=== PATIENT | male | born 1940 | race Hispanic/Latino ===

== ENCOUNTER 2018-07-11 12:10 | Inpatient (IN) | payer MEDICARE ==
[2018-07-11 12:17] VITALS: BMI 22.6
--- NOTE | 2018-07-11 12:32 | ED PDOC ---
Arrival/HPI - General Chief Complaint: Weakness/Neurological Deficit Time Seen by Provider: 07/11/18 12:11 Historian: Patient, Spouse () - History of Present Illness Narrative History of Present Illness (Text): 77 M with pmh of liver cirrhosis w/ TIPS procedure, dementia, diabetes, HTN, CAD w/ stent x2, Liver CA, presents with chief complaint of bodily tremors for several days. Per patient's , the patient last episode of tremors was this morning where it occurred for about 30 minutes. He remained conscious during these tremors. Patient's also mentioned that the patient has also complained of generalized weakness and worsening mentation for a couple days. Patient 's endorses patient has been complaint with lactulose medication. Patient otherwise denies fevers, chills, headache, dizziness, shortness of b reath, dyspnea on exertion, cough, chest pain, abdominal pain, nausea, vomiting, diarrhea, back pain, neck pain, or any other complaint. Time/Duration: < week Symptom Onset: Gradual Symptom Course: Worsening Activities at Onset: Light Context: Home Past Medical History - Provider Review Nursing Documentation Reviewed: Yes - Infectious Disease Hx of Infectious Diseases: None - Tetanus Immunization Tetanus Immunization: Unknown - Cardiac Hx Cardiac Disorders: Yes Hx Hypertension: Yes - Pulmonary Hx Respiratory Disorders: No - Neurological Hx Neurological Disorder: Yes Hx Dementia: Yes - HEENT Hx HEENT Disorder: No - Renal Hx Renal Disorder: No - Endocrine/Metabolic Hx Endocrine Disorders: Yes Hx Diabetes Mellitus Type 2: Yes - Hematological/Oncological Hx Blood Disorders: Yes Hx Cirrhosis: Yes - Integumentary Hx Dermatological Disorder: No - Musculoskeletal/Rheumatological Hx Musculoskeletal Disorders: Yes Hx Unsteady Gait: Yes - Gastrointestinal Hx Gastrointestinal Disorders: Yes (Liver tumor) - Genitourinary/Gynecological Hx Genitourinary Disorders: No - Psychiatric Hx Psychophysiologic Disorder: No Hx Substance Use: No - Past Surgical History Past Surgical History: No Previous - Surgical History Hx Coronary Stent: Yes Other/Comment: TIPPS - Suicidal Assessment Feels Threatened In Home Enviroment: No Family/Social History - Physician Review Nursing Documentation Reviewed: Yes Family/Social History: Unknown Family HX Smoking Status: Never Smoked Hx Alcohol Use: No Hx Substance Use: No Hx Substance Use Treatment: No Allergies/Home Meds Allergies/Adverse Reactions: Allergies penicillamine Allergy (Verified 12/16/17 15:51) RASH Home Medications: Home Meds Medication Instructions Recorded Confirmed Liraglutide [Victoza] 1.8 mg SC DAILY 10/08/14 07/11/18 Losartan [Cozaar] 50 mg PO DAILY 10/08/14 07/11/18 Brimonidine Tartrate/Timolol 5 ml OP BID 07/11/18 07/11/18 [Combigan 0.2%-0.5% Eye Drops] Carvedilol [Coreg] 12.5 mg PO DAILY 07/11/18 07/11/18 Donepezil [Aricept] 5 mg PO DAILY 07/11/18 07/11/18 Furosemide [Lasix] 40 mg PO BID 07/11/18 07/11/18 Gabapentin [Neurontin] 300 mg PO DAILY 07/11/18 07/11/18 Insulin Detemir [Levemir] 18 unit SC BID 07/11/18 07/11/18 Lactulose [Generlac] 10 gm PO HS 07/11/18 07/11/18 amLODIPine [Norvasc] 5 mg PO DAILY 07/11/18 07/11/18 Review of Systems - Physician Review All systems were reviewed & negative as marked: Yes - Review of Systems Constitutional: Fevers, Other (generalized weakness) Eyes: absent: Vision Changes, Photophobia, Eye Pain ENT: absent: Hearing Changes Respiratory: absent: SOB, Cough Cardiovascular: absent: Chest Pain, Palpitations Gastrointestinal: absent: Abdominal Pain, Stool Changes Genitourinary Male: absent: Dysuria Musculoskeletal: absent: Arthralgias Skin: absent: Rash, Pruritis Neurological: absent: Headache, Dizziness Endocrine: absent: Diaphoresis, Polyuria Physical Exam Vital Signs Reviewed: Yes Vital Signs Temp Pulse Resp BP Pulse Ox 07/11/18 12:10 97.6 F 71 18 163/77 H 100 Temperature: Afebrile Blood Pressure: Hypertensive Pulse: Regular Respiratory Rate: Normal Appearance: Positive for: Well-Appearing, Non-Toxic, Comfortable Pain Distress: None Mental Status: No: Alert and Oriented X 3 (A & 0x1) Finger Stick Blood Glucose: 203 - Systems Exam Head: Present: Atraumatic, Normocephalic Pupils: Present: PERRL Extroacular Muscles: Present: EOMI Conjunctiva: Present: Normal Ears: Present: Normal, NORMAL TM Mouth: Present: Moist Mucous Membranes Pharnyx: Present: Normal. No: ERYTHEMA, EXUDATE, TONSILS ENLARGED, Peritonsilar Swelling, Uvular Deviation Neck: Present: Normal Range of Motion. No: Meningeal Signs, MIDLINE TENDERNESS Respiratory/Chest: Present: Clear to Auscultation, Good Air Exchange. No: Respiratory Distress, Accessory Muscle Use Cardiovascular: Present: Regular Rate and Rhythm, Normal S1, S2. No: Murmurs Abdomen: No: Tenderness, Distention, Peritoneal Signs Back: Present: Normal Inspection. No: CVA Tenderness, Midline Tenderness Upper Extremity: Present: Normal Inspection, Normal ROM, NORMAL PULSES. No: Cyanosis, Edema Lower Extremity: Present: Edema (B/l, 2+), NORMAL PULSES, Neurovascularly Intact Neurological: Present: GCS=15, CN II-XII Intact, Speech Normal Skin: Present: Warm, Dry, Normal Color. No: Rashes Psychiatric: Present: Alert, Normal Insight, Normal Concentration. No: Oriented x 3 (0x1) Medical Decision Making ED Course and Treatment: 77 yr old male w/ hx of Liver cirrhosis, TIPS procedure, Liver CA, Dementia, CAD w/ stents p/w tremors. bedside notes tremors w/ pt fully conscious. Pt has recollection of tremors and denies any tongue biting or enuresis during these episodes. On exam pt is AOx1, per pt notes that pt is usually AOx3. She notes these changes have been progressive over the past days and not within the past 24 hours. No fall or trauma. B/L LE swelling. No unilateral weakness or slurred speech. Pending imaging and labs. 07/11/18 13:47 Mild MAGED on labs, BNP unremarkable fluid ordered CT Head and CXR unremarkable Given MAGED and tremors, AMS change from baseline will likely place in obs pending UA and Ammonia. No asterixis at this time. 07/11/18 14:00 Appreciate consult w/ Dr. Platt: to obs to his service Pt in [facility], agreeable to plan 07/11/18 14:07 ammonia 159 lactulose ordered pt in [facility] appreciate reconsult w/ Dr. Platt: to admit to his service, we are to place consult order to Dr. Analia Tavarez (GI) - RAD Interpretation Radiology Orders: 07/11/18 12:26 HEAD W/O CONTRAST [CT] Stat CHEST TWO VIEWS (PA/LAT) [RAD] Stat - EKG Interpretation EKG Interpretation (Text): 07/11/18 12:30 EKG: Ordered, reviewed, and independently interpreted the EKG. Rate : 73 BPM Rhythm : NSR Interpretation : Right Bundle Branch Block. No STEMI Interpreted by ED Physician: Yes Type: 12 lead EKG - Scribe Statement The provider has reviewed the documentation as recorded by the Alexandre Dumont Provider Scribe Attestation: All medical record entries made by the Catrachitoibnya were at my direction and personally dictated by me. I have reviewed the chart and agree that the record accurately reflects my personal performance of the history, physical exam, medical decision making, and the department course for this patient. I have also personally directed, reviewed, and agree with the discharge instructions and disposition. Disposition/Present on Arrival - Present on Arrival Any Indicators Present on Arrival: No History of DVT/PE: No History of Uncontrolled Diabetes: No Urinary Catheter: No History of Decub. Ulcer: No History Surgical Site Infection Following: None - Disposition Have Diagnosis and Disposition been Completed?: Yes Diagnosis: MAGED (acute kidney injury), Altered mental status, Hyperammonemia Disposition: HOSPITALIZED Disposition Time: 13:52 Patient Problems: Current Active Problems Problem Status Onset MAGED (acute kidney injury) Acute Altered mental status Acute Condition: STABLE Forms: [employer] (Maltese)
[2018-07-11 13:02] LABS: VENOUS BLOOD GAS BASE EXCESS 1.7 mmol/L (0.0-2.0); VENOUS BLOOD GAS PO2 29 mm/Hg (30-55); VENOUS BLOOD PH 7.41 (7.32-7.43)
[2018-07-11 13:06] LABS: BASO # 0.03 K/mm3 (0.0-2.0); BASO % 0.5 % (0.0-3.0); EOS # 0.2 (0.0-0.7); EOS % 2.8 % (1.5-5.0); HEMOGLOBIN 14.4 g/dL (14.0-18.0); LYMPH # 0.8 (1.2-3.4); LYMPH % 13.9 % (22.0-35.0); MEAN CELL VOLUME 92.8 fl (80.0-105.0); MEAN CORPUSCULAR HEMOGLOBIN 32.6 pg (25.0-35.0); MEAN CORPUSCULAR HGB CONC 35.1 g/dl (31.0-37.0); MEAN PLATELET VOLUME 10.5 fl (7.0-11.0); MONO # 0.4 (0.1-0.6); MONO % 7.3 % (1.0-6.0); RBC 4.42 10^6/uL (3.5-6.1); RED CELL DISTRIBUTION WIDTH 13.1 % (11.5-14.5); WHITE BLOOD COUNT 5.6 10^3/uL (4.5-11.0)
--- NOTE | 2018-07-11 13:21 | CT ---
Date of service: 07/11/2018 PROCEDURE: CT HEAD WITHOUT CONTRAST. HISTORY: weak / ams from baseline / tremor COMPARISON: Noncontrast head CT performed 09/13/14 TECHNIQUE: Axial computed tomography images were obtained through the head/brain without intravenous contrast. Radiation dose: Total exam DLP = 778.19 mGy-cm. This CT exam was performed using one or more of the following dose reduction techniques: Automated exposure control, adjustment of the mA and/or kV according to patient size, and/or use of iterative reconstruction technique. FINDINGS: HEMORRHAGE: No intracranial hemorrhage. BRAIN: Diffuse atrophy with prominence of the ventricles and sulci noted. No mass effect or edema. Intracranial atherosclerosis. Scattered periventricular and subcortical white matter hypodensities, which are nonspecific, but often seen with chronic microvascular ischemic disease. Please note that MRI with diffusion imaging is more sensitive in the detection of acute ischemic event. VENTRICLES: No hydrocephalus. CALVARIUM: Unremarkable. PARANASAL SINUSES: 9 mm left frontal osteoma. Remainder the visualized paranasal sinuses appear grossly clear. MASTOID AIR CELLS: Unremarkable as visualized. No inflammatory changes. OTHER FINDINGS: None. IMPRESSION: Generalized atrophy. Nonspecific white matter changes identified.
[2018-07-11 13:24] LABS: ALBUMIN 3.6 g/dL (3.0-4.8); ALT/SGPT 27 U/L (7-56); AST/SGOT 38 U/L (17-59); BLOOD UREA NITROGEN 28 mg/dL (7-21); CALCIUM 9.1 mg/dL (8.4-10.5); GFR NON-AFRICAN AMERICAN 39
--- NOTE | 2018-07-11 13:31 | RAD ---
HISTORY: weak / ams COMPARISON: None available. TECHNIQUE: Chest PA and lateral, 2 views FINDINGS: LUNGS: No focal consolidation. Please note that chest x-ray has limited sensitivity for the detection of pulmonary masses. PLEURA: No significant pleural effusion identified. No definite pneumothorax . CARDIOVASCULAR: Heart size appears within normal limits. Atherosclerotic calcifications of the aorta. OSSEOUS STRUCTURES: Degenerative changes. VISUALIZED UPPER ABDOMEN: Unremarkable. OTHER FINDINGS: None. IMPRESSION: No focal consolidation identified.
[2018-07-11 13:35] LABS: B-TYPE NATRIURETIC PEPTIDE 192 pg/mL (0-450); TROPONIN I < 0.01 ng/mL
[2018-07-11] MEDS: Sodium Chloride 0.9% 1,000 ML IV SCH (14:02)
[2018-07-11 14:22] LABS: PH,URINE 7.5 (4.7-8.0); URINE APPEARANCE CLEAR (CLEAR); URINE BILIRUBIN NEGATIVE (NEGATIVE); URINE BLOOD NEGATIVE (NEGATIVE); URINE COLOR YELLOW (YELLOW); URINE GLUCOSE (UA) >=1000 mg/dL (NEGATIVE); URINE LEUKOCYTE ESTERASE NEGATIVE Leu/uL (NEGATIVE); URINE PROTEIN 100 mg/dL (<30 mg/dL)
[2018-07-11 14:54] LABS: INR 1.19; PROTHROMBIN TIME 13.2 SECONDS (9.4-12.5)
[2018-07-11 15:07] LABS: URINE BACTERIA FEW /hpf; URINE EPITHELIAL CELLS 0 - 2 /hpf (0-5); URINE RBC 0 - 2 /hpf (0-2); URINE WBC 0 - 2 /hpf (0-6)
[2018-07-11] MEDS: BRIMONIDINE TARTRATE OP SCH (17:35)
[2018-07-11] MEDS: TIMOLOL OP SCH (17:35)
[2018-07-11] MEDS: Insulin Detemir 100 units/ml Vial (Levemir) SC SCH (17:38)
[2018-07-11] MEDS: Insulin Reg-LOW-Coverage SC SCH ×2 (17:39→21:31)
--- NOTE | 2018-07-11 20:30 | CARD ---
APPROVED REPORT Date of service: 07/11/2018 EKG Measurement Heart [id number] <Conclusion> Poor data quality, interpretation may be adversely affected Normal sinus rhythm Left axis deviation Right bundle branch block Minimal voltage criteria for LVH, may be normal variant Abnormal ECG
[2018-07-12] MEDS: Sodium Chloride 0.9% 1,000 ML IV SCH (01:00)
--- NOTE | 2018-07-12 02:24 | HP ---
DATE OF EXAM: 07/11/2018 HISTORY OF PRESENT ILLNESS: Patient is seen in the emergency room at [facility] which is [facility] in [place]. A 77-year-old male. He presented to the emergency room with confusion, tremors, ataxia, and gait abnormality. Patient woke up this morning according to his and he was in a tremulous state and somewhat confused. Patient was brought to emergency room for evaluation. Patient had no fall or injury. Patient has no history of fever. Patient had no history of headache. Patient has past history of liver disease. Patient has cirrhosis of liver. Patient has TIPS procedure performed on him several years ago. Patient has treatment for malignant hepatomas in the liver, multiple hepatomas treated at the [facility]. Patient also history of coronary artery disease and diabetes mellitus. Patient also has history of chronic foot infection. The patient is on insulin for diabetes. In addition, patient gets Victoza which is antidiabetic medication. PHYSICAL EXAMINATION GENERAL: Patient is seen lying down in the bed. He seems to be awake, and oriented to place, time, and person. VITAL SIGNS: Pulse is 78, blood pressure 167/79, respirations 18, and O2 sat is 100% on room air. HEENT: Head is normocephalic. The eyes do not show any jaundice. NECK: JVP is flat. Carotid pulse are present. No lymphadenopathy. LUNGS: Trachea is central. Breath sounds vesicular. No adventitious sounds. HEART: Normal sinus rhythm. S1 and S2 present. No murmurs. ABDOMEN: Soft. Liver and spleen not palpable. DOT COMPLIANCE SPECIALIST: Patient is conscious, rational and oriented as mentioned. Patient has no cranial nerve palsy at this time. Cranial nerves II to XII are intact. Patient's gait, as mentioned earlier, has some instability. Patient has no flapping tremors noted on examination. LABORATORY DATA: Blood work was evaluated in the ER. Hemoglobin is 14.4. Patient's chemistries; the BUN is 28 and creatinine 1.7. Patient's ammonia level is 159 which is abnormal. Patient's TSH is 13.60, that is elevated also at this time. Patient's troponin level is within normal range. Patient's blood sugar is 212. MEDICATIONS: Patient is being placed on his medications which are Aricept 5 mg daily. Patient gets Combigan for glaucoma. Patient gets Coreg 12.5 mg b.i.d., losartan 50 mg daily, lactulose 10 g b.i.d. which will be increased may be 3-4 times a day. Patient will get insulin coverage, Lasix 40 mg twice a day IV. Patient will get Levemir insulin 18 units b.i.d. Patient gets gabapentin 300 mg daily and amlodipine 5 mg daily. Patient is on IV fluids for short term. He will be on diet that is specific for liver disease. The patient's consultation will be placed with Dr. Helms, he is a geoscience professor. Patient will be admitted to the medical floor and will be watched closely. In the meantime, patient had a CAT scan of the head done which did not reveal any pathology. Chest x-ray was clear. The EKG report is not read, but according to the physician, there are no acute findings. 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 Patient had diabetes, coronary artery disease, and malignant hepatoma. PLAN: We will follow up. Eb Carolina MD VICTORINA
[2018-07-12 06:39] LABS: BASO # 0.03 K/mm3 (0.0-2.0); BASO % 0.6 % (0.0-3.0); EOS # 0.2 (0.0-0.7); EOS % 3.6 % (1.5-5.0); HEMOGLOBIN 12.5 g/dL (14.0-18.0); LYMPH # 1.5 (1.2-3.4); LYMPH % 28.9 % (22.0-35.0); MEAN CORPUSCULAR HEMOGLOBIN 32.4 pg (25.0-35.0); MEAN CORPUSCULAR HGB CONC 34.8 g/dl (31.0-37.0); MEAN PLATELET VOLUME 10.5 fl (7.0-11.0); MONO # 0.5 (0.1-0.6); MONO % 8.6 % (1.0-6.0); RBC 3.86 10^6/uL (3.5-6.1); RED CELL DISTRIBUTION WIDTH 13.2 % (11.5-14.5); WHITE BLOOD COUNT 5.3 10^3/uL (4.5-11.0)
[2018-07-12 07:15] LABS: ALB/GLOB RATIO 0.8 (1.1-1.8); ALBUMIN 2.5 g/dL (3.0-4.8); CALCIUM 8.5 mg/dL (8.4-10.5)
[2018-07-12 07:48] VITALS: O2SAT 98
--- NOTE | 2018-07-12 08:37 | CON ---
DATE: 07/11/2018 REASON FOR CONSULTATION: Change of mental status, hepatic encephalopathy. 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 Patient did have microwave ablation therapy and TACE, transarterial chemoembolization initially in 2017. Patient was doing well. Patient subsequently was found to have another new lesion in segment 6 and 7. Initially lesion was in 6 and 5, at the S5 and the second one was in 6 and 7 and that was noticed for which the patient had evaluation at the [facility]. He was seen by Dr. Barahona and he was recommended again to repeat microwave ablation therapy. Patient is due to have a followup to remove the remainder of the lesion. Patient is due to follow up for this at the [facility]. Patient also had history of ascites, and patient had GI bleeding, with gastric varices, esophageal varices. He had a TIPS procedure done. The last MRI done at the [facility], the TIPS was found to be patent. Patient was noticed to have change of mental status by his and he was brought to the hospital. Patient's ammonia level was found to be high. It was 159. Patient was given lactulose. Patient was evaluated in the ER, appeared comfortable. was at bedside. PAST MEDICAL HISTORY: Significant for coronary artery disease status post stent placement in the past, diabetes mellitus, hypertension, peripheral neuropathy, arthritis, and glaucoma. SOCIAL HISTORY: Positive for ex alcohol use. Denies smoking. REVIEW OF SYSTEMS: Positive as above. Other systems reviewed. No complaints of vomiting. No abdominal pain now. No melena or bleeding per rectum. ALLERGIES: PATIENT IS ALLERGIC TO PENICILLIN. PHYSICAL EXAMINATION GENERAL: Patient is lying on bed, not in acute distress. VITAL SIGNS: Temperature is 97.6, blood pressure 167/79, respirations 18, O2 saturation is 100%. HEENT: Atraumatic, anicteric. NECK: Supple. HEART: S1 and S2 heard. LUNGS: Bilateral air entry present. ABDOMEN: Soft. No tenderness. EXTREMITIES: No edema. No cyanosis. NEUROLOGIC: Patient is a little lethargic, has asterixis present. LABORATORY DATA: Hemoglobin 14.4, hematocrit 41, WBC 5.6, and platelets 165. Chemistry showed BUN 18 and creatinine 1.7. Ammonia level 159. TSH is elevated to 13.6. IMPRESSION: This 77-year-old patient with; 1. 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 Patient has been on oral lactulose. 2. Patient had a history of gastrointestinal bleeding in the past, has esophageal and gastric varices status post transjugular intrahepatic portosystemic shunt. Last MRI done at the [facility] the transjugular intrahepatic portosystemic shunt appeared patent. Would request an abdominal Doppler to further evaluate. 3. Patient has an elevated BUN and creatinine. Clinically, patient appears dry. His BUN baseline used to be 1.2, it is now 1.7. Would consider gentle hydration in this patient. 4. Elevated TSH. It is elevated to 13.6. We discussed with Dr. Carolina regarding the management. 5. His other comorbidities include coronary artery disease and diabetes mellitus. PLAN: I did discuss with the emergency room physician regarding the management of lactulose with a lactulose dose, and abdominal Doppler and ultrasound scan of the abdomen with Doppler to further evaluate and gentle hydration. We will continue to closely follow up with his care and suggest further recommendations based on the clinical course. Thank you very much for allowing us to participate in the care of the patient. Daysi Helms MD
[2018-07-12] MEDS: Insulin Reg-LOW-Coverage SC SCH ×3 (08:38→17:24)
--- NOTE | 2018-07-12 08:55 | US ---
PROCEDURE: Portal vein duplex ultrasound. CLINICAL HISTORY: Cirrhosis. Evaluate TIPS patency PHYSICIAN(S): Navarro Barton M.D. FINDINGS: The hepatic parenchyma is somewhat heterogeneous. No obvious mass is appreciated on these limited images. The TIPS shunt is patent. Velocities up to 226 cm/second are present in the mid stent. This may be related to an inappropriate Doppler angle. The right hepatic vein appears patent with mildly elevated velocities. The portal vein velocity is normal IMPRESSION: 1. Patent TIPS stent 2. No significant ascites. 3. Moderately elevated velocities in the mid stent. This may be related to an inappropriate Doppler angle.
--- NOTE | 2018-07-12 10:02 | PN ---
DATE: 07/12/2018 SUBJECTIVE: The patient is in [facility] in room 372, bed 2. The patient was admitted with liver disease, and encephalopathy. The patient is seen this morning, he is awake and alert. PHYSICAL EXAMINATION VITAL SIGNS: Pulse is 71, blood pressure 175/76, respirations are 20, his O2 sats 98% on room air and temperature is normal. HEENT: The patient's head is normocephalic. LUNGS: Clear. HEAT: Normal sinus rhythm. ABDOMEN: Soft. Liver and spleen not palpable. No tenderness. No masses clinically palpable. CENTRAL NERVOUS SYSTEM: The patient is conscious, seems to be mildly lethargic and weak. LABORATORY DATA: The patient's blood work this morning, his hemoglobin 12.5. His chemistry; sugar is 141, BUN is 25 and creatinine 1.4. The patient's total protein is 5.6 and albumin is 2.5, which is low. The patient had ultrasound of the abdomen. ASSESSMENT AND PLAN: The patient is supposed to be seen by Dr. Helms, the Head Soft Sugar Operator and we will followup. Eb Carolina MD [email or web address]
[2018-07-12] MEDS: Insulin Detemir 100 units/ml Vial (Levemir) SC SCH ×2 (11:06→17:23)
[2018-07-12] MEDS: TIMOLOL OP SCH (11:10)
[2018-07-12] MEDS: BRIMONIDINE TARTRATE OP SCH (11:10)
--- NOTE | 2018-07-12 11:42 | CP.PCM.PN ---
<Jacy Calzada - Last Filed: 07/12/18 11:37> Subjective - Date & Time of Evaluation Date of Evaluation: 07/12/18 Time of Evaluation: 11:37 - Subjective Subjective: Jacy Calzada, PGY-1, GI Progress Note for Dr. Helms Patient seen and evaluated at bedside. Patient had no acute overnight events. Patient is AAOx2 at bedside. He reports having 3 loose bowel movements that were dark brown over the past 24 hours. He denies nausea, vomiting, or abdominal pain. Objective - Vital Signs/Intake and Output Vital Signs (last 24 hours): Temp Pulse Resp BP Pulse Ox 97.3 F L 71 20 175/76 H 98 07/12/18 07:48 07/12/18 11:09 07/12/18 07:48 07/12/18 11:09 07/12/18 07:48 Intake and Output: 07/12/18 07/12/18 06:59 18:59 Intake Total 480 Output Total 550 Balance -70 - Medications Medications: Current Medications Amlodipine Besylate (Norvasc) 5 mg PO DAILY [facility] Last Admin: 07/12/18 11:09 Dose: 5 mg Carvedilol (Coreg) 12.5 mg PO DAILY [facility] Last Admin: 07/12/18 11:08 Dose: 12.5 mg Donepezil HCl (Aricept) 5 mg PO DAILY [facility] Last Admin: 07/12/18 11:05 Dose: 5 mg Furosemide (Lasix) 40 mg PO BID [facility] Last Admin: 07/12/18 11:08 Dose: 40 mg Gabapentin (Neurontin) 300 mg PO DAILY [facility]; Protocol Last Admin: 07/12/18 11:05 Dose: 300 mg Sodium Chloride (Sodium Chloride 0.9%) 1,000 mls @ 100 mls/hr IV .Q10H [facility] Last Admin: 07/12/18 01:00 Dose: 100 mls/hr Insulin Detemir (Levemir) 18 unit SC BID [facility] Last Admin: 07/12/18 11:06 Dose: 18 units Insulin Human Regular (Humulin R Low) 0 units SC ACHS [facility]; Protocol Last Admin: 07/12/18 08:38 Dose: Not Given Lactulose (Enulose) 30 gm PO TID [facility] Last Admin: 07/12/18 11:05 Dose: 30 gm Losartan Potassium (Cozaar) 50 mg PO DAILY [facility] Last Admin: 07/12/18 11:07 Dose: 50 mg Brimonidine Tartrate /Timolol [Combigan 0 .2%-0.5% Eye Drops] 5 Ml (Home Med) 5 ml OP BID [facility] Last Admin: 07/12/18 11:10 Dose: Not Given Rifaximin (Xifaxan) 550 mg PO BID [facility]; Protocol Last Admin: 07/12/18 11:06 Dose: 550 mg - Labs Labs: 07/12/18 06:10 07/12/18 06:10 PT 13.2 SECONDS (9.4-12.5) H 07/11/18 12:48 INR 1.19 07/11/18 12:48 - Constitutional Appears: Well, Non-toxic, No Acute Distress - Head Exam Head Exam: ATRAUMATIC, NORMAL INSPECTION, NORMOCEPHALIC - Eye Exam Eye Exam: EOMI, PERRL - ENT Exam ENT Exam: Mucous Membranes Moist - Respiratory Exam Respiratory Exam: Clear to Ausculation Bilateral, NORMAL BREATHING PATTERN - Cardiovascular Exam Cardiovascular Exam: REGULAR RHYTHM, RRR, +S1, +S2 - GI/Abdominal Exam GI & Abdominal Exam: Soft, Normal Bowel Sounds. absent: Tenderness - Extremities Exam Extremities Exam: Full ROM, Normal Inspection. absent: Pedal Edema - Neurological Exam Neurological Exam: Alert, Awake, CN II-XII Intact, Oriented x3 - Skin Skin Exam: Dry, Intact Assessment and Plan - Assessment and Plan (Free Text) Assessment: 77 year old male with past medical history of CAD status post stent placement, diabetes mellitus, hypertension, peripheral neuropathy, arthritis, glaucoma, al coholic cirrhosis, and history of hepatocellular carcinoma s/p microwave ablation and TACE in 2017 presents with altered mental status likely 2/2 to hepatic encephalopathy. #Hepatic encephalopathy #Alcoholic cirrhosis #Hepatocellular carcinoma #CAD #Diabetes Mellitus Plan: -Patient was found to have elevated ammonia of 159 on presentation -Patient is currently on oral lactulose and rifaximin likely resulting in the loose stools. -Continue lactulose and rifaximin and monitor mental status. 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 -As per abdominal ultrasound, TIPS is patent with no significant ascites -Patient's MAGED has resolved -Patient has elevated TSH. Follow up with primary regarding management. Patient plan discussed with Dr. Helms. <Daysi Helms V - Last Filed: 07/13/18 00:22> Objective - Vital Signs/Intake and Output Vital Signs (last 24 hours): Temp Pulse Resp BP Pulse Ox 96.6 F L 81 18 129/65 98 07/12/18 22:00 07/12/18 22:00 07/12/18 22:00 07/12/18 22:00 07/12/18 16:53 Intake and Output: 07/12/18 07/13/18 18:59 06:59 Intake Total 1000 720 Output Total 500 Balance 1000 220 - Medications Medications: Current Medications Amlodipine Besylate (Norvasc) 5 mg PO DAILY [facility] Last Admin: 07/12/18 11:09 Dose: 5 mg Carvedilol (Coreg) 12.5 mg PO DAILY [facility] Last Admin: 07/12/18 11:08 Dose: 12.5 mg Donepezil HCl (Aricept) 5 mg PO DAILY [facility] Last Admin: 07/12/18 11:05 Dose: 5 mg Furosemide (Lasix) 40 mg PO BID [facility] Last Admin: 07/12/18 17:24 Dose: 40 mg Gabapentin (Neurontin) 300 mg PO DAILY [facility]; Protocol Last Admin: 07/12/18 11:05 Dose: 300 mg Sodium Chloride (Sodium Chloride 0.9%) 1,000 mls @ 30 mls/hr IV .Q24H [facility] Last Admin: 07/12/18 22:23 Dose: 30 mls/hr Insulin Detemir (Levemir) 18 unit SC BID [facility] Last Admin: 07/12/18 17:23 Dose: 18 units Insulin Human Regular (Humulin R High) 0 units SC Q4H [facility]; Protocol Lactulose (Enulose) 30 gm PO TID [facility] Last Admin: 07/12/18 17:23 Dose: 30 gm Levothyroxine Sodium (Synthroid) 25 mcg PO 0600 [facility] Losartan Potassium (Cozaar) 50 mg PO DAILY [facility] Last Admin: 07/12/18 11:07 Dose: 50 mg Brimonidine Tartrate /Timolol [Combigan 0 .2%-0.5% Eye Drops] 5 Ml (Home Med) 0 ml OU BID [facility] Last Admin: 07/12/18 17:25 Dose: 1 ml Rifaximin (Xifaxan) 550 mg PO BID [facility]; Protocol Last Admin: 07/12/18 18:25 Dose: 550 mg - Labs Labs: 07/12/18 06:10 07/12/18 06:10 PT 13.2 SECONDS (9.4-12.5) H 07/11/18 12:48 INR 1.19 07/11/18 12:48 Attending/Attestation - Attestation I have personally seen and examined this patient.: Yes I have fully participated in the care of the patient.: Yes I have reviewed all pertinent clinical information, including history, physical exam and plan: Yes Notes (Text): This patient was seen and evaluated along with the resident area. This is an addendum to the GI progress report dictated by the resident patient is more alert. Tolerating diet plan for discharge patient need to be followed up at the [facility] for HCC management Patient was taking only 15 mL of lactulose advised the patient to take at least 30-60 mm titrate the dose to keep the bowel movements around [address] Saunders allowing us to participate in the care of the patient. We will continue to closely follow him follow-up with his care and suggest further management based on the clinical course 07/13/18 00:20
--- NOTE | 2018-07-12 15:25 | CP.PCM.APN ---
Subjective - Date & Time of Evaluation Date of Evaluation: 07/12/18 Time of Evaluation: 13:00 - Subjective Subjective: Pt. seen at bedside, after having lunch, denied abdominal pain, nausea, vomiting, having stools , awaits eval from Dr. Helms. Objective - Vital Signs/Intake and Output Vital Signs (last 24 hours): Temp Pulse Resp BP Pulse Ox 97.3 F L 71 20 175/76 H 98 07/12/18 07:48 07/12/18 11:09 07/12/18 07:48 07/12/18 11:09 07/12/18 07:48 Intake and Output: 07/12/18 07/12/18 06:59 18:59 Intake Total 480 Output Total 550 Balance -70 - Medications Medications: Current Medications Amlodipine Besylate (Norvasc) 5 mg PO DAILY [facility] Last Admin: 07/12/18 11:09 Dose: 5 mg Carvedilol (Coreg) 12.5 mg PO DAILY [facility] Last Admin: 07/12/18 11:08 Dose: 12.5 mg Donepezil HCl (Aricept) 5 mg PO DAILY [facility] Last Admin: 07/12/18 11:05 Dose: 5 mg Furosemide (Lasix) 40 mg PO BID [facility] Last Admin: 07/12/18 11:08 Dose: 40 mg Gabapentin (Neurontin) 300 mg PO DAILY [facility]; Protocol Last Admin: 07/12/18 11:05 Dose: 300 mg Sodium Chloride (Sodium Chloride 0.9%) 1,000 mls @ 100 mls/hr IV .Q10H [facility] Last Admin: 07/12/18 01:00 Dose: 100 mls/hr Insulin Detemir (Levemir) 18 unit SC BID [facility] Last Admin: 07/12/18 11:06 Dose: 18 units Insulin Human Regular (Humulin R Low) 0 units SC ACHS [facility]; Protocol Last Admin: 07/12/18 13:12 Dose: 4 units Lactulose (Enulose) 30 gm PO TID [facility] Last Admin: 07/12/18 13:09 Dose: 30 gm Losartan Potassium (Cozaar) 50 mg PO DAILY [facility] Last Admin: 07/12/18 11:07 Dose: 50 mg Brimonidine Tartrate /Timolol [Combigan 0 .2%-0.5% Eye Drops] 5 Ml (Home Med) 0 ml OU BID [facility] Rifaximin (Xifaxan) 550 mg PO BID [facility]; Protocol Last Admin: 07/12/18 11:06 Dose: 550 mg - Labs Labs: 07/12/18 06:10 07/12/18 06:10 PT 13.2 SECONDS (9.4-12.5) H 07/11/18 12:48 INR 1.19 07/11/18 12:48 - Constitutional Appears: Well, Non-toxic - Head Exam Head Exam: NORMOCEPHALIC - Eye Exam Eye Exam: absent: Conjunctival injection, EOMI, Normal appearance, Nystagmus, Periorbital swelling, Periorbital tenderness, PERRL, Scleral icterus - ENT Exam ENT Exam: absent: Mucous Membranes Dry, Mucous Membranes Moist, Normal Exam, Normal External Ear Exam, Normal Oropharynx, TM's Normal Bilaterally - Neck Exam Neck Exam: absent: Full ROM, Lymphadenopathy, Meningismus, Normal Inspection, Tenderness, Thyromegaly - Rectal Exam Rectal Exam: Deferred - Exam Exam: absent: Circumcision, NORMAL INSPECTION, Scrotal Swelling, Testicular Tenderness, Uretheral Discharge, Testicular Vertical Lie, Bladder Distension External exam: absent: Ecchymosis, Erythema, Lacerations, Lesions, NORMAL EXTERNAL EXAM, Swelling Speculum exam: absent: Cervical Discharge, Erythema, Foreign Body, Laceration, NORMAL SPECULUM EXAM, Tissue, Vaginal Bleeding, Vaginal Discharge Bimanual exam: absent: Adenexal Mass, Adnexal, Cervical Motion Tendernes, NORMAL BIMANUAL EXAM, Uterine Enlargement, Uterine Tenderness - Back Exam Back Exam: Full ROM - Neurological Exam Neurological Exam: Alert, Awake, Oriented x3 - Psychiatric Exam Psychiatric exam: Normal Affect, Normal Mood - Skin Skin Exam: Dry, Intact, Normal Color, Warm Assessment and Plan - Assessment and Plan (Free Text) Assessment: ITS Impressions Chest X-Ray 07/11/18 12:26 IMPRESSION: No focal consolidation identified. Head CT 07/11/18 12:26 IMPRESSION: Generalized atrophy. Nonspecific white matter changes identified. Abdomen Ultrasound 07/11/18 17:43 IMPRESSION: 1. Patent TIPS stent 2. No significant ascites. 3. Moderately elevated velocities in the mid stent. This may be related to an inappropriate Doppler angle. Assessment: 77 M with pmh of liver cirrhosis w/ TIPS procedure, dementia, diabetes, HTN, CAD w/ stent x2, Liver CA, presents with chief complaint of bodily tremors for several days. Plan: 1. AMS -likely secondary to elevated ammonia levels AMS, tremors improved. 2. Liver Cirrhosis Ammonia levels improved. awaiting GI input. Will continue to monitor clinical status and follow closely
[2018-07-12] MEDS: BRIMONIDINE TARTRATE OU SCH (17:25)
[2018-07-12] MEDS: TIMOLOL OU SCH (17:25)
[2018-07-12] MEDS ORDERED: Insulin Reg-LOW-Coverage SC STA (18:12)
[2018-07-12] MEDS ORDERED: Insulin Reg-HIGH-Coverage SC SCH ×2 (22:00→22:19)
[2018-07-12] MEDS ORDERED: Sodium Chloride 0.9% 1,000 ML IV SCH (22:15)
[2018-07-13] MEDS: Insulin Reg-HIGH-Coverage SC SCH ×2 (02:00→10:28)
[2018-07-13] MEDS ORDERED: Levothyroxine 25 MCG TAB PO SCH (06:00)
[2018-07-13 06:11] VITALS: BP 136/55; PULSE 63; TEMP 98.1
[2018-07-13 07:17] LABS: ALB/GLOB RATIO 0.9 (1.1-1.8); ALBUMIN 2.4 g/dL (3.0-4.8); CALCIUM 8.1 mg/dL (8.4-10.5)
[2018-07-13] MEDS ORDERED: Potassium Chloride 20 mEq ER Tab PO ONE (08:07)
[2018-07-13 08:17] VITALS: RESP 16
[2018-07-13] MEDS ORDERED: Sodium Chloride 0.9% 1,000 ML IV STA (08:44)
--- NOTE | 2018-07-13 08:45 | CP.PCM.PN ---
<Jacy Calzada - Last Filed: 07/13/18 12:01> Subjective - Date & Time of Evaluation Date of Evaluation: 07/13/18 Time of Evaluation: 08:41 - Subjective Subjective: Jacy Calzada, PGY-1, GI Progress Note for Dr. Helms Patient seen and evaluated at bedside. Patient had no acute overnight events. Patient's glucose has been uncontrolled over the past 24 hours with glucose ranging from 30s to 400s. He is AAOx2 at bedside and reports no symptoms. Objective - Vital Signs/Intake and Output Vital Signs (last 24 hours): Temp Pulse Resp BP Pulse Ox 98.1 F 63 16 136/55 L 98 07/13/18 08:17 07/13/18 08:17 07/13/18 08:17 07/13/18 08:17 07/13/18 08:17 Intake and Output: 07/13/18 07/13/18 06:59 18:59 Intake Total 1080 Output Total 700 Balance 380 - Medications Medications: Current Medications Amlodipine Besylate (Norvasc) 5 mg PO DAILY [facility] Last Admin: 07/12/18 11:09 Dose: 5 mg Carvedilol (Coreg) 12.5 mg PO DAILY [facility] Last Admin: 07/12/18 11:08 Dose: 12.5 mg Donepezil HCl (Aricept) 5 mg PO DAILY [facility] Last Admin: 07/12/18 11:05 Dose: 5 mg Furosemide (Lasix) 40 mg PO BID [facility] Last Admin: 07/12/18 17:24 Dose: 40 mg Gabapentin (Neurontin) 300 mg PO DAILY [facility]; Protocol Last Admin: 07/12/18 11:05 Dose: 300 mg Insulin Detemir (Levemir) 18 unit SC BID [facility] Last Admin: 07/12/18 17:23 Dose: 18 units Insulin Human Regular (Humulin R High) 0 units SC Q4H [facility]; Protocol Last Admin: 07/13/18 02:00 Dose: Not Given Lactulose (Enulose) 30 gm PO TID [facility] Last Admin: 07/12/18 17:23 Dose: 30 gm Levothyroxine Sodium (Synthroid) 25 mcg PO 0600 [facility] Last Admin: 07/13/18 06:22 Dose: 25 mcg Losartan Potassium (Cozaar) 50 mg PO DAILY [facility] Last Admin: 07/12/18 11:07 Dose: 50 mg Brimonidine Tartrate /Timolol [Combigan 0 .2%-0.5% Eye Drops] 5 Ml (Home Med) 0 ml OU BID [facility] Last Admin: 07/12/18 17:25 Dose: 1 ml Rifaximin (Xifaxan) 550 mg PO BID [facility]; Protocol Last Admin: 07/12/18 18:25 Dose: 550 mg - Labs Labs: 07/12/18 06:10 07/13/18 06:20 PT 13.2 SECONDS (9.4-12.5) H 07/11/18 12:48 INR 1.19 07/11/18 12:48 - Constitutional Appears: Well, Non-toxic, No Acute Distress - Head Exam Head Exam: ATRAUMATIC, NORMAL INSPECTION, NORMOCEPHALIC - Eye Exam Eye Exam: EOMI, PERRL - ENT Exam ENT Exam: Mucous Membranes Moist - Respiratory Exam Respiratory Exam: Clear to Ausculation Bilateral, NORMAL BREATHING PATTERN - Cardiovascular Exam Cardiovascular Exam: REGULAR RHYTHM, RRR, +S1, +S2 - GI/Abdominal Exam GI & Abdominal Exam: Soft, Normal Bowel Sounds. absent: Tenderness - Extremities Exam Extremities Exam: Full ROM, Normal Inspection. absent: Pedal Edema - Neurological Exam Neurological Exam: Alert, Awake, CN II-XII Intact, Oriented x3 - Skin Skin Exam: Dry, Intact Assessment and Plan - Assessment and Plan (Free Text) Assessment: 77 year old male with past medical history of CAD status post stent placement, diabetes mellitus, hypertension, peripheral neuropathy, arthritis, glaucoma, alcoholic cirrhosis, and history of hepatocellular carcinoma s/p microwave ablation and TACE in 2017 presents with altered mental status likely 2/2 to hepatic encephalopathy. #Hepatic encephalopathy #Alcoholic cirrhosis #Hepatocellular carcinoma #CAD #Diabetes Mellitus Plan: -Patient was found to have elevated ammonia of 159 on presentation -Patient is currently on oral lactulose and rifaximin likely resulting in the loose stools. -Continue lactulose and rifaximin and monitor mental status. Will optimize lactulose dose so patient has 2 bowel movements daily. 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 -As per abdominal ultrasound, TIPS is patent with no significant ascites -Patient once again has an MAGED. Will start gentle hydration at this time. -Patient has elevated TSH. Follow up with primary regarding management. -Patient should follow up at [facility] for further management of hepatocellular carcinoma. -Patient should follow up outpatient with Dr. Helms for further management. Patient plan discussed with Dr. Helms. <Daysi Helms V - Last Filed: 07/14/18 01:01> Objective - Vital Signs/Intake and Output Vital Signs (last 24 hours): Temp Pulse Resp BP Pulse Ox 98.1 F 63 16 136/55 L 98 07/13/18 08:17 07/13/18 10:21 07/13/18 08:17 07/13/18 10:21 07/13/18 08:17 - Labs Labs: 07/12/18 06:10 07/13/18 06:20 PT 13.2 SECONDS (9.4-12.5) H 07/11/18 12:48 INR 1.19 07/11/18 12:48 Attending/Attestation - Attestation I have personally seen and examined this patient.: Yes I have fully participated in the care of the patient.: Yes I have reviewed all pertinent clinical information, including history, physical exam and plan: Yes Notes (Text): This patient was seen and evaluated here earlier today this is an addendum to the GI progress report dictated by the resident. Patient need to titrate the dose of the lactulose there is a clear explanation was given. Patient also advised to follow-up with a liver unit at the [facility] regarding the hepatic lesions Explanation was given to the patient's regarding this who fully understood 07/14/18 01:00
--- NOTE | 2018-07-13 09:09 | PN ---
DATE: 07/13/2018 SUBJECTIVE: The patient is in [facility] in room 372, bed 2. A 77-year-old white male. The patient was admitted with encephalopathy due to liver disease. The patient has history of coronary artery disease, diabetes mellitus, hypertension. The patient also has history of liver cancer. The patient was seen this morning. The blood sugar is 135. The patient's potassium is 3.4. The patient is clinically much improved. We will discharge the patient today. PHYSICAL EXAMINATION: GENERAL: The patient is conscious, rational and oriented, feels good. VITAL SIGNS: The pulse is 63, blood pressure 136/65, respirations are 20, O2 sat 98% on room air. The patient's temperature is normal. LUNGS: Clear. HEART: Normal sinus rhythm. S1 and S2 present. No murmur. ABDOMEN: Soft. Liver and spleen not palpable. No ascites. CENTRAL NERVOUS SYSTEM: The patient is conscious, rational and oriented. His gait is much improved. MEDICATIONS: The patient's list of medication consists of Aricept 5 mg daily. The patient is on Combigan for glaucoma, Coreg 12.5 mg twice a day, losartan 50 mg daily, lactulose 30 mg three times a day, insulin coverage. The patient goes home he will be on Victoza 1.8 mg everyday. The patient is on Lasix 40 mg twice a day, potassium chloride 20 mEq once daily, insulin coverage with Levemir and Humalog. DIET: The patient's diet is heart-healthy diet and diabetic. LABORATORY DATA: The patient's blood work this morning, hemoglobin 12.5. The patient's chemistry; blood sugar 132. His ammonia level was down to 50. ASSESSMENT AND PLAN: The patient is clinically improved. We will discharge the patient and he will followup as an outpatient. The patient is also getting rifaximin 550 mg p.o. twice a day, this is an antibiotic, Synthroid 25 mcg daily. We will have to order the Synthroid. His overall condition is improved. The patient's prognosis is guarded. In review of his diagnosis, he will followup as an outpatient in the office in one-week. Eb Carolina MD [facility]
[2018-07-13] MEDS: Insulin Detemir 100 units/ml Vial (Levemir) SC SCH (10:21)
[2018-07-13] MEDS: BRIMONIDINE TARTRATE OU SCH (10:26)
[2018-07-13] MEDS: TIMOLOL OU SCH (10:26)
--- NOTE | 2018-07-14 02:38 | DS ---
BRIEF HISTORY: This is a 77-year-old male with history of cirrhosis of the liver, diabetes, TIPS procedure, malignant hepatomas in the liver, coronary artery disease, chronic foot infection, who presented to the emergency room with confusion, tremor, ataxia, and gait abnormality. According to the , the patient woke up in a tremulous state and was somewhat confused. The patient was placed in observation. HOSPITAL COURSE: The patient's ammonia level was elevated at 159. He was seen by Gastroenterology who started him on rifaximin and lactulose was increased to 30 mg three times a day. Ultrasound of the abdomen was ordered and no significant ascites was seen. His ammonia level decreased to 42. The patient had three bowel movements. The patient's blood sugar was elevated. He was given extra doses of insulin. Patient normally takes Victoza which was not available in the hospital. He was cleared by GI for discharge and was discharged home in stable condition. DISCHARGE DIAGNOSES: 1. Increased ammonia level. 2. Cirrhosis of the liver. 3. Malignant hepatomas of the liver. 4. Hypertension. 5. Diabetes. 6. Congestive heart failure. 7. Arthritis. 8. Coronary artery disease. DISCHARGE MEDICATIONS: Aricept 5 mg once a day, Timolol 5 mL twice a day, Coreg 12.5 mg daily, Cozaar 50 mg daily, lactulose 10 mg twice a day, Lasix 20 mg twice a day, Levemir 18 units twice a day, Neurontin 300 mg daily, Norvasc 5 mg daily, Victoza 1.8 mg subq daily, and Synthroid 25 mcg daily. FOLLOWUP: The patient will follow up in the office in 1 week. Ananth Carolina MD [facility]
== END 2018-07-13 13:11 | disposition home or self-care (01) | DRG 442 ==
LOC: ED 12:10 → OBSVTOIN 13:57 → ERH 13:57 → 3RSO 16:08 → INTOOBSV 07-12 08:28 → OBSVTOIN 07-12 08:28
PROVIDERS: ADMIT Internal Medicine; ATTEND Internal Medicine
DX: K72.90 Hepatic failure, unspecified without coma (principal); N17.9 Acute kidney failure, unspecified; C22.0 Liver cell carcinoma; K70.30 Alcoholic cirrhosis of liver without ascites; I25.10 Atherosclerotic heart disease of native coronary artery without angina pectoris; E11.42 Type 2 diabetes mellitus with diabetic polyneuropathy; I11.0 Hypertensive heart disease with heart failure; I50.9 Heart failure, unspecified; F03.90 Unspecified dementia, unspecified severity, without behavioral disturbance, psychotic disturbance, mood disturbance, and anxiety; R94.6 Abnormal results of thyroid function studies; Z79.4 Long term (current) use of insulin; Z95.5 Presence of coronary angioplasty implant and graft

== ENCOUNTER 2018-08-25 17:03 | Inpatient (IN) | payer MEDICARE ==
[2018-08-25 17:19] VITALS: BMI 22.8
[2018-08-25] MEDS ORDERED: Sodium Chloride 0.9% 1,000 ML IV STA (17:24)
[2018-08-25 17:39] LABS: VENOUS BLOOD GAS BASE EXCESS -0.2 mmol/L (0.0-2.0); VENOUS BLOOD GAS PO2 22 mm/Hg (30-55); VENOUS BLOOD PH 7.33 (7.32-7.43)
--- NOTE | 2018-08-25 17:44 | ED PDOC ---
Arrival/HPI - General Chief Complaint: High Blood Sugar Time Seen by Provider: 08/25/18 17:05 Historian: Patient - History of Present Illness Narrative History of Present Illness (Text): 08/25/18 17:44 77M w/ h/o malignant hepatoma s/p resection(UH), diabetes, HTN, s/p TIPS procedure(2016) presenting to the Emergency Room with complaint of hyperglycemia. Patient was noted to have elevated blood sugars of over 600s per his and after he was given 25U of Levemir(per Dr. Platt orders). He was noted to have repeated blood sugars within the 500s even after being given 10U 2 more times within 3 hours of each other. The patient's informed the PCP who encouraged the patient to come to the Emergency Room. Of note, the patient recently had removal of malignant hepatoma performed 2 days prior and was last admitted in [facility] [place] in July for hepatic encephalopathy. PCP: Dr. Platt Time/Duration: Prior to Arrival Symptom Onset: Sudden Symptom Course: Unchanged Activities at Onset: Rest Context: Home Past Medical History - Provider Review Nursing Documentation Reviewed: Yes Primary Care Provider: Ho Carolina R - Travel History Have you recently traveled outside [place] w/in the past 3 mons?: No - Infectious Disease Hx of Infectious Diseases: None - Tetanus Immunization Tetanus Immunization: Unknown - Cardiac Hx Cardiac Disorders: Yes Hx Hypertension: Yes - Pulmonary Hx Respiratory Disorders: No - Neurological Hx Neurological Disorder: Yes Hx Dementia: Yes Hx Dizziness: Yes Other/Comment: tremors - HEENT Hx HEENT Disorder: No - Renal Hx Renal Disorder: No - Endocrine/Metabolic Hx Endocrine Disorders: Yes Hx Diabetes Mellitus Type 2: Yes - Hematological/Oncological Hx Blood Disorders: No - Integumentary Hx Dermatological Disorder: No - Musculoskeletal/Rheumatological Hx Musculoskeletal Disorders: No Hx Falls: Yes Hx Unsteady Gait: Yes - Gastrointestinal Hx Gastrointestinal Disorders: Yes Other/Comment: cirrhosis, Liver tumor - Genitourinary/Gynecological Hx Incontinence: Yes - Psychiatric Hx Psychophysiologic Disorder: No Hx Substance Use: No - Past Surgical History Past Surgical History: No Previous - Surgical History Hx Coronary Stent: Yes Other/Comment: Liver embolization - Anesthesia Hx Anesthesia: Yes - Suicidal Assessment Feels Threatened In Home Enviroment: No Family/Social History - Physician Review Nursing Documentation Reviewed: Yes Family/Social History: Unknown Family HX Smoking Status: Never Smoked Hx Alcohol Use: No Hx Substance Use: No Hx Substance Use Treatment: No Allergies/Home Meds Allergies/Adverse Reactions: Allergies Iodinated Contrast- Oral and IV Dye Allergy (Verified 07/11/18 14:22) ANAPHYLAXIS Penicillins Allergy (Verified 07/11/18 14:22) RASH Home Medications: Home Meds Medication Instructions Recorded Confirmed Liraglutide [Victoza 2-Norman] 1.8 mg SC DAILY 10/08/14 07/11/18 Losartan [Cozaar] 50 mg PO DAILY 10/08/14 07/11/18 Brimonidine Tartrate/Timolol 5 ml OP BID 07/11/18 07/11/18 [Combigan 0.2%-0.5% Eye Drops] Carvedilol [Coreg] 12.5 mg PO DAILY 07/11/18 07/11/18 Donepezil [Aricept] 5 mg PO DAILY 07/11/18 07/11/18 Furosemide [Lasix] 40 mg PO BID 07/11/18 07/11/18 Gabapentin [Neurontin] 300 mg PO DAILY 07/11/18 07/11/18 Insulin Detemir [Levemir] 18 unit SC BID 07/11/18 07/11/18 Lactulose [Generlac] 10 gm PO HS 07/11/18 07/11/18 amLODIPine [Norvasc] 5 mg PO DAILY 07/11/18 07/11/18 Review of Systems - Physician Review All systems were reviewed & negative as marked: Yes - Review of Systems Neurological: Dizziness Physical Exam Vital Signs Reviewed: Yes Vital Signs Temp Pulse Resp BP Pulse Ox 08/25/18 17:18 98.6 F 61 17 161/82 H 98 Temperature: Afebrile Blood Pressure: Hypertensive Pulse: Regular Respiratory Rate: Normal Appearance: Positive for: Well-Appearing, Non-Toxic, Comfortable Mental Status: Positive for: Alert and Oriented X 3 Finger Stick Blood Glucose: 469 - Systems Exam Head: Present: Atraumatic, Normocephalic Pupils: Present: PERRL Extroacular Muscles: Present: EOMI Conjunctiva: Present: Normal Mouth: Present: Moist Mucous Membranes Neck: Present: Normal Range of Motion Respiratory/Chest: Present: Clear to Auscultation Cardiovascular: Present: Regular Rate and Rhythm, Normal S1, S2 Abdomen: Present: Normal Bowel Sounds. No: Tenderness, Distention Lower Extremity: Present: Edema (+2 pitting edema noted), NORMAL PULSES, Capillary Refill < 2 s Neurological: Present: CN II-XII Intact, Speech Normal Skin: Present: Warm, Dry, Normal Color Medical Decision Making ED Course and Treatment: 08/25/18 17:53 Impression 77M w/ h/o hepatic mass presenting with hyperglycemia Plan --Labs --IV Fluids --Finger Stick Glucose --Reassess & Disposition Progress Notes 08/25/18 18:24 Repeat fingerstick glucose 400s and noted to be 319 on ABG. No leukocytosis seen on labs. Call placed to Dr. Platt(PCP). 08/25/18 18:[address] Platt who states patient should be admitted under tele observation for continuous monitoring of blood sugars, given their fluctuating nature. Shared plan for observation with patient and who is agreeable to admission. - Lab Interpretations Lab Results: 08/25/18 17:41 08/25/18 17:41 Lab Results 08/25/18 17:41: Sodium 138, Chloride 105, Potassium 5.0, Carbon Dioxide 27, Anion Gap 12, BUN 46 H, Creatinine 1.7 H, Est GFR ( Amer) 48, Est GFR (Non-Af Amer) 39, Random Glucose 480 H* D, Calcium 8.4, Total Bilirubin 2.3 H, AST 151 H D, ALT 104 H, Alkaline Phosphatase 99, Troponin I < 0.01, Total Protein 6.9, Albumin 3.4, Globulin 3.5, Albumin/Globulin Ratio 1.0 L 08/25/18 17:41: PT 13.0 H, INR 1.17, APTT 28.3 08/25/18 17:41: WBC 11.3 H D, RBC 4.15, Hgb 13.2 L, Hct 38.5 L, MCV 92.8, MCH 31.8, MCHC 34.3, RDW 13.2, Plt Count 94 L, MPV 11.1 H, Neut % (Auto) 88.1 H, Lymph % (Auto) 7.7 L, [place] % (Auto) 4.2, Eos % (Auto) 0.0 L, Baso % (Auto) 0.0, Lymph # (Auto) 0.9 L, [place] # (Auto) 0.5, Eos # (Auto) 0.0, Baso # (Auto) 0.00, Absolute Neuts (auto) 9.94 H 08/25/18 17:30: pO2 22 L, VBG pH 7.33, VBG pCO2 50.0, VBG HCO3 26.4, VBG Total CO2 27.9, VBG O2 Sat (Calc) 48.0, VBG Base Excess -0.2 L, VBG Potassium 4.8, Sodium 138.0, Chloride 105.0, Glucose 319 H, Lactate 2.5 H, FiO2 21.0, Crit Value Called To Bianca kasper, Crit Value Called By Ena, Blood Gas Notified Time 1739, Venous Blood Potassium 4.8 I have reviewed the lab results: Yes - RAD Interpretation Radiology Orders: 08/25/18 17:18 CHEST PORTABLE [RAD] Stat - Medication Orders Current Medication Orders: Sodium Chloride (Sodium Chloride 0.9%) 1,000 mls @ 999 mls/hr IV .Q1H1M STA Stop: 08/25/18 18:24 Disposition/Present on Arrival - Present on Arrival History of DVT/PE: No History of Uncontrolled Diabetes: No Urinary Catheter: No History of Decub. Ulcer: No History Surgical Site Infection Following: None - Disposition Referrals: Ho Carolina MD [Primary Care Provider] - Follow up with primary Forms: [employer] ([place])
[2018-08-25 17:55] LABS: HEMOGLOBIN 13.2 g/dL (14.0-18.0); LYMPH # 0.9 (1.2-3.4); LYMPH % 7.7 % (22.0-35.0); MEAN CELL VOLUME 92.8 fl (80.0-105.0); MEAN CORPUSCULAR HEMOGLOBIN 31.8 pg (25.0-35.0); MEAN CORPUSCULAR HGB CONC 34.3 g/dl (31.0-37.0); MEAN PLATELET VOLUME 11.1 fl (7.0-11.0); MONO # 0.5 (0.1-0.6); MONO % 4.2 % (1.0-6.0); RBC 4.15 10^6/uL (3.5-6.1); RED CELL DISTRIBUTION WIDTH 13.2 % (11.5-14.5); WHITE BLOOD COUNT 11.3 10^3/uL (4.5-11.0)
[2018-08-25 17:56] LABS: INR 1.17; PARTIAL THROMBOPLASTIN TIME 28.3 Seconds (26.9-38.3)
--- NOTE | 2018-08-25 18:07 | RAD ---
Date of service: 08/25/2018 HISTORY: Shortness of breath. COMPARISON: 07/11/2018. FINDINGS: LUNGS: No active pulmonary disease. PLEURA: No significant pleural effusion identified, no pneumothorax apparent. CARDIOVASCULAR: No atherosclerotic calcification present No radiographic findings to suggest acute or significant cardiovascular disease. OSSEOUS STRUCTURES: No significant abnormalities. VISUALIZED UPPER ABDOMEN: Normal. OTHER FINDINGS: None. IMPRESSION: No active disease. No significant interval change compared to the prior examination(s).
[2018-08-25 18:16] LABS: ALBUMIN 3.4 g/dL (3.0-4.8); ALT/SGPT 104 U/L (7-56); AST/SGOT 151 U/L (17-59); BLOOD UREA NITROGEN 46 mg/dL (7-21); CALCIUM 8.4 mg/dL (8.4-10.5); GFR NON-AFRICAN AMERICAN 39
[2018-08-25 18:17] LABS: TROPONIN I < 0.01 ng/mL
--- NOTE | 2018-08-25 19:05 | CP.PCM.HP ---
History of Present Illness - History of Present Illness History of Present Illness: 77 year old male with history of hypertension, cirrhosis of liver s/p TIPS, diabetes mellitus, and arthritis who presents to the Emergency Room with hyperglycemia. Patient also has tumor of the liver for which he had ablation done today. Patient was given Solumedrol during the procedure and began having blood sugars over 600 after he came home. He denies fever, chills, nausea, vomiting, chest pain or dyspnea. Present on Admission - Present on Admission Any Indicators Present on Admission: No History of DVT/PE: No History of Uncontrolled Diabetes: No Urinary Catheter: No Decubitus Ulcer Present: No Review of Systems - Constitutional Constitutional: absent: Chills, Fever - Cardiovascular Cardiovascular: absent: Chest Pain, Diaphoresis, Dyspnea - Respiratory Respiratory: absent: Cough, Dyspnea, Hemoptysis - Gastrointestinal Gastrointestinal: absent: Abdominal Pain, Nausea, Vomiting Past Patient History - Infectious Disease Hx of Infectious Diseases: None - Tetanus Immunizations Tetanus Immunization: Unknown - Past Social History Smoking Status: Never Smoked - CARDIAC Hx Cardiac Disorders: Yes Hx Hypertension: Yes - PULMONARY Hx Respiratory Disorders: No - NEUROLOGICAL Hx Neurological Disorder: Yes Hx Dementia: Yes Hx Dizziness: Yes Other/Comment: tremors - HEENT Hx HEENT Problems: No - RENAL Hx Chronic Kidney Disease: No - ENDOCRINE/METABOLIC Hx Endocrine Disorders: Yes Hx Diabetes Mellitus Type 2: Yes - HEMATOLOGICAL/ONCOLOGICAL Hx Blood Disorders: No - INTEGUMENTARY Hx Dermatological Problems: No - MUSCULOSKELETAL/RHEUMATOLOGICAL Hx Musculoskeletal Disorders: No Hx Falls: Yes Hx Unsteady Gait: Yes - GASTROINTESTINAL Hx Gastrointestinal Disorders: Yes Other/Comment: cirrhosis, Liver tumor - GENITOURINARY/GYNECOLOGICAL Hx Incontinence: Yes - PSYCHIATRIC Hx Psychophysiologic Disorder: No Hx Substance Use: No - SURGICAL HISTORY Hx Coronary Stent: Yes Other/Comment: Liver embolization - ANESTHESIA Hx Anesthesia: Yes Meds Allergies/Adverse Reactions: Allergies Allergy/AdvReac Type Severity Reaction Status Date / Time Iodinated Contrast- Oral and Allergy ANAPHYLAXIS Verified 07/11/18 14:22 IV Dye Penicillins Allergy RASH Verified 07/11/18 14:22 Physical Exam - Constitutional Appears: No Acute Distress - Head Exam Head Exam: ATRAUMATIC, NORMOCEPHALIC - Respiratory Exam Respiratory Exam: Clear to Auscultation Bilateral, NORMAL BREATHING PATTERN - Cardiovascular Exam Cardiovascular Exam: +S1, +S2 - GI/Abdominal Exam GI & Abdominal Exam: Soft. absent: Tenderness - Neurological Exam Neurological exam: Alert, CN II-XII Intact, Oriented x3 Results - Vital Signs Recent Vital Signs: Last Vital Signs Temp 98.6 F 08/25/18 17:18 Pulse 61 08/25/18 17:18 Resp 17 08/25/18 17:18 BP 161/82 H 08/25/18 17:18 Pulse Ox 98 08/25/18 17:18 - Labs Result Diagrams: 08/25/18 17:41 08/25/18 17:41 Labs: Laboratory Results - last 24 hr 08/25/18 08/25/18 08/25/18 17:30 17:41 17:41 WBC 11.3 H D RBC 4.15 Hgb 13.2 L Hct 38.5 L MCV 92.8 MCH 31.8 MCHC 34.3 RDW 13.2 Plt Count 94 L MPV 11.1 H Neut % (Auto) 88.1 H Lymph % (Auto) 7.7 L [place] % (Auto) 4.2 Eos % (Auto) 0.0 L Baso % (Auto) 0.0 Lymph # (Auto) 0.9 L [place] # (Auto) 0.5 Eos # (Auto) 0.0 Baso # (Auto) 0.00 Absolute Neuts (auto) 9.94 H PT 13.0 H INR 1.17 APTT 28.3 pO2 22 L VBG pH 7.33 VBG pCO2 50.0 VBG HCO3 26.4 VBG Total CO2 27.9 VBG O2 Sat (Calc) 48.0 VBG Base Excess -0.2 L VBG Potassium 4.8 Sodium 138.0 Chloride 105.0 Glucose 319 H Lactate 2.5 H FiO2 21.0 Crit Value Called To Bianca kasper Crit Value Called By Ena Blood Gas Notified Time 4201 Potassium Carbon Dioxide Anion Gap BUN Creatinine Est GFR ( Amer) Est GFR (Non-Af Amer) Random Glucose Calcium Total Bilirubin AST ALT Alkaline Phosphatase Ammonia Troponin I Total Protein Albumin Globulin Albumin/Globulin Ratio Venous Blood Potassium 4.8 08/25/18 08/25/18 17:41 18:04 WBC RBC Hgb Hct MCV MCH MCHC RDW Plt Count MPV Neut % (Auto) Lymph % (Auto) [place] % (Auto) Eos % (Auto) Baso % (Auto) Lymph # (Auto) [place] # (Auto) Eos # (Auto) Baso # (Auto) Absolute Neuts (auto) PT INR APTT pO2 VBG pH VBG pCO2 VBG HCO3 VBG Total CO2 VBG O2 Sat (Calc) VBG Base Excess VBG Potassium Sodium 138 Chloride 105 Glucose Lactate FiO2 Crit Value Called To Crit Value Called By Blood Gas Notified Time Potassium 5.0 Carbon Dioxide 27 Anion Gap 12 BUN 46 H Creatinine 1.7 H Est GFR ( Amer) 48 Est GFR (Non-Af Amer) 39 Random Glucose 480 H* D Calcium 8.4 Total Bilirubin 2.3 H AST 151 H D ALT 104 H Alkaline Phosphatase 99 Ammonia < 9 L D Troponin I < 0.01 Total Protein 6.9 Albumin 3.4 Globulin 3.5 Albumin/Globulin Ratio 1.0 L Venous Blood Potassium Assessment & Plan - Assessment and Plan (Free Text) Assessment: Hyperglycemia HTN Cirrhosis of liver s/p TIPS s/p ablation of liver cancer Diabetes mellitus CAD Plan: Patient given bolus of IV fluid and blood sugar is now 480. Will continue IV fluids. continue Levemir and insulin coverage. Check blood sugar every 4 hours. continue maintenance medications. Will check urinalysis, serum osmolality.
[2018-08-25] MEDS: Insulin Reg-LOW-Coverage SC SCH ×2 (20:03→23:35)
[2018-08-25] MEDS ORDERED: Insulin Regular 1 UNITS/0.01 ML ML ONE (20:05)
[2018-08-25 20:10] LABS: URINE BILIRUBIN NEGATIVE (NEGATIVE); URINE BLOOD MODERATE (NEGATIVE); URINE GLUCOSE (UA) >=1000 mg/dL (NEGATIVE); URINE LEUKOCYTE ESTERASE NEGATIVE Leu/uL (NEGATIVE); URINE PROTEIN 100 mg/dL (<30 mg/dL); URINE UROBILINOGEN 0.2 E.U./dL (<1 E.U./dL)
[2018-08-25 20:12] LABS: URINE COLOR YELLOW (YELLOW)
[2018-08-25 20:13] LABS: URINE APPEARANCE SL CLOUDY (CLEAR)
[2018-08-25] MEDS: Sodium Chloride 0.9% 1,000 ML IV SCH (20:25)
[2018-08-25 20:29] LABS: URINE BACTERIA FEW /hpf
[2018-08-25 21:41] LABS: VENOUS BLOOD GAS BASE EXCESS -0.2 mmol/L (0.0-2.0); VENOUS BLOOD GAS PO2 52 mm/Hg (30-55); VENOUS BLOOD PH 7.37 (7.32-7.43)
[2018-08-26] MEDS: Insulin Reg-LOW-Coverage SC SCH ×5 (04:12→20:00)
[2018-08-26 06:35] LABS: BASO # 0.01 K/mm3 (0.0-2.0); BASO % 0.1 % (0.0-3.0); EOS % 0.4 % (1.5-5.0); HEMOGLOBIN 11.3 g/dL (14.0-18.0); LYMPH % 12.6 % (22.0-35.0); MEAN CELL VOLUME 92.8 fl (80.0-105.0); MEAN CORPUSCULAR HEMOGLOBIN 31.5 pg (25.0-35.0); MEAN CORPUSCULAR HGB CONC 33.9 g/dl (31.0-37.0); MEAN PLATELET VOLUME 11.2 fl (7.0-11.0); MONO # 0.9 (0.1-0.6); MONO % 11.1 % (1.0-6.0); RBC 3.59 10^6/uL (3.5-6.1); RED CELL DISTRIBUTION WIDTH 13.3 % (11.5-14.5); WHITE BLOOD COUNT 7.6 10^3/uL (4.5-11.0)
[2018-08-26] MEDS: Levothyroxine 25 MCG TAB PO SCH (06:44)
[2018-08-26] MEDS: Sodium Chloride 0.9% 1,000 ML IV SCH (06:44)
[2018-08-26 07:09] LABS: ALB/GLOB RATIO 0.8 (1.1-1.8); ALBUMIN 2.5 g/dL (3.0-4.8); CALCIUM 7.8 mg/dL (8.4-10.5)
[2018-08-26] MEDS: Sodium Chloride 0.45% 1,000 ML IV SCH ×3 (08:00→23:10)
--- NOTE | 2018-08-26 08:00 | CP.PCM.PN ---
Subjective - Date & Time of Evaluation Date of Evaluation: 08/26/18 Time of Evaluation: 07:30 - Subjective Subjective: Patient is seen this morning. He says he feels better, but did not have a bowel movement yesterday. Objective - Vital Signs/Intake and Output Vital Signs (last 24 hours): Temp Pulse Resp BP Pulse Ox 97.6 F 56 L 18 162/77 H 98 08/26/18 06:00 08/26/18 06:00 08/26/18 06:00 08/26/18 06:00 08/26/18 06:00 Intake and Output: 08/26/18 08/26/18 06:59 18:59 Intake Total 240 Output Total 375 Balance -135 - Medications Medications: Current Medications Amlodipine Besylate (Norvasc) 5 mg PO DAILY [facility] Carvedilol (Coreg) 12.5 mg PO DAILY [facility] Donepezil HCl (Aricept) 5 mg PO DAILY [facility] Furosemide (Lasix) 40 mg PO BID [facility] Gabapentin (Neurontin) 300 mg PO DAILY [facility]; Protocol Sodium Chloride (Sodium Chloride 0.9%) 1,000 mls @ 100 mls/hr IV .Q10H [facility] Last Admin: 08/26/18 06:44 Dose: 100 mls/hr Insulin Detemir (Levemir) 18 unit SC BID [facility] Insulin Human Regular (Humulin R Low) 0 units SC Q4H [facility]; Protocol Last Admin: 08/26/18 04:12 Dose: Not Given Lactulose (Enulose) 10 gm PO DAILY [facility] Levothyroxine Sodium (Synthroid) 25 mcg PO 0600 [facility] Last Admin: 08/26/18 06:44 Dose: 25 mcg Losartan Potassium (Cozaar) 50 mg PO DAILY [facility] - Labs Labs: 08/26/18 06:10 08/26/18 06:10 PT 13.0 SECONDS (9.4-12.5) H 08/25/18 17:41 INR 1.17 08/25/18 17:41 APTT 28.3 Seconds (26.9-38.3) 08/25/18 17:41 - Constitutional Appears: No Acute Distress - Head Exam Head Exam: ATRAUMATIC, NORMOCEPHALIC - Respiratory Exam Respiratory Exam: Clear to Ausculation Bilateral, NORMAL BREATHING PATTERN - Cardiovascular Exam Cardiovascular Exam: REGULAR RHYTHM, +S1, +S2 - GI/Abdominal Exam GI & Abdominal Exam: Soft, Normal Bowel Sounds. absent: Tenderness - Neurological Exam Neurological Exam: Alert, Awake, CN II-XII Intact, Oriented x3 Assessment and Plan - Assessment and Plan (Free Text) Assessment: Hyperosmolar hyperglycemic state Dehydration Diabetes mellitus Constipation Cirrhosis of liver s/p TIPS s/p ablation of liver cancer Arthritis CAD Plan: Patient's blood sugar improving with IV fluids. BUN and creatinine also improved. Beta-hydroxybutyrate results are pending. Patient has not had a bowel movement in over 24 hours. Due to cirrhosis of liver, it is necessary for patient to have a BM daily to avoid encephalopathy. Will increase Lactulose to three times today. continue Levemir and insulin coverage.
[2018-08-26] MEDS: Insulin Detemir 100 units/ml Vial (Levemir) SC SCH ×2 (09:36→17:19)
--- NOTE | 2018-08-26 10:08 | CARD ---
APPROVED REPORT Date of service: 08/25/2018 EKG Measurement Heart [id number] <Conclusion> Normal sinus rhythm Left axis deviation Right bundle branch block Abnormal ECG
--- NOTE | 2018-08-26 11:53 | CP.PCM.APN ---
Subjective - Date & Time of Evaluation Date of Evaluation: 08/26/18 Time of Evaluation: 10:00 - Subjective Subjective: pt seen and examined a t bedside, pt in NAD , pt states he feel tired but with no sob or cp, no dizziness Review of Systems - Constitutional Constitutional: As Per HPI Objective - Vital Signs/Intake and Output Vital Signs (last 24 hours): Temp Pulse Resp BP Pulse Ox 97.6 F 66 18 163/75 H 98 08/26/18 06:00 08/26/18 10:00 08/26/18 06:00 08/26/18 09:36 08/26/18 06:00 Intake and Output: 08/26/18 08/26/18 06:59 18:59 Intake Total 240 Output Total 375 Balance -135 - Medications Medications: Current Medications Amlodipine Besylate (Norvasc) 5 mg PO DAILY [facility] Last Admin: 08/26/18 09:36 Dose: 5 mg Carvedilol (Coreg) 12.5 mg PO DAILY [facility] Last Admin: 08/26/18 09:35 Dose: Not Given Donepezil HCl (Aricept) 5 mg PO DAILY [facility] Last Admin: 08/26/18 09:35 Dose: 5 mg Furosemide (Lasix) 40 mg PO BID [facility] Last Admin: 08/26/18 09:36 Dose: 40 mg Gabapentin (Neurontin) 300 mg PO DAILY [facility]; Protocol Last Admin: 08/26/18 09:36 Dose: 300 mg Sodium Chloride (Sodium Chloride 0.45%) 1,000 mls @ 80 mls/hr IV .[id number] [facility] Last Admin: 08/26/18 09:00 Dose: 80 mls/hr Insulin Detemir (Levemir) 18 unit SC BID [facility] Last Admin: 08/26/18 09:36 Dose: 18 units Insulin Human Regular (Humulin R Low) 0 units SC Q4H [facility]; Protocol Last Admin: 08/26/18 08:06 Dose: Not Given Lactulose (Enulose) 10 gm PO TID [facility] Last Admin: 08/26/18 09:35 Dose: 10 gm Levothyroxine Sodium (Synthroid) 25 mcg PO 0600 [facility] Last Admin: 08/26/18 06:44 Dose: 25 mcg Losartan Potassium (Cozaar) 50 mg PO DAILY [facility] Last Admin: 08/26/18 09:35 Dose: 50 mg - Labs Labs: 08/26/18 06:10 08/26/18 06:10 PT 13.0 SECONDS (9.4-12.5) H 08/25/18 17:41 INR 1.17 08/25/18 17:41 APTT 28.3 Seconds (26.9-38.3) 08/25/18 17:41 - Constitutional Appears: Non-toxic, No Acute Distress - Eye Exam Eye Exam: Normal appearance Pupil Exam: NORMAL ACCOMODATION - Respiratory Exam Respiratory Exam: Decreased Breath Sounds, NORMAL BREATHING PATTERN - Cardiovascular Exam Cardiovascular Exam: +S1, +S2 - GI/Abdominal Exam GI & Abdominal Exam: Distended, Soft - Neurological Exam Neurological Exam: Alert, Awake, Oriented x3 Additional comments: RODRIGUEZ - Psychiatric Exam Psychiatric exam: Normal Affect, Normal Mood - Skin Skin Exam: Dry, Intact Assessment and Plan - Assessment and Plan (Free Text) Plan: ITS Impressions Chest X-Ray 08/25/18 17:18 IMPRESSION: No active disease. No significant interval change compared to the prior examination(s). a/p 77 yr old white male with pmh sig for malignant hepatoma s/p ablation, dm, htn, s/p TIPS in 2016 now admitted withj uncontrolled blood sugar s/p abaltion of liver. pt bS was over 600, pt is now on IV, Insulin sliding scale. pt BS noted with improvement with IVF. will discuss with pmd, HgA1c ordered to assess glycemic control. will follow and discuss plan with pmd. p.t. ordered for pt deconditioned state. pt discussed in IDT rounds. BPCI/TIC - BPCIA/TIC Educated pt/family on BPCIA/CIR/Med to Bed Programs: N/A Flyers given, including [facility] Beneficiary letter: N/A Pt/family verbalized understanding & agreed to program: N/A
[2018-08-27] MEDS: Insulin Reg-LOW-Coverage SC SCH ×6 (00:03→21:35)
[2018-08-27] MEDS ORDERED: Dextrose 50% SYRINGE Inj (50 ml) ONE (03:59)
[2018-08-27] MEDS ORDERED: Dextrose 50% SYRINGE Inj (50 ml) IVP ONE (04:04)
[2018-08-27] MEDS: Levothyroxine 25 MCG TAB PO SCH (05:58)
--- NOTE | 2018-08-27 07:49 | CP.PCM.PN ---
Subjective - Date & Time of Evaluation Date of Evaluation: 08/27/18 Time of Evaluation: 07:30 - Subjective Subjective: Patient is seen this morning. According to the nurse, his blood sugar dropped to 49. He is only eating 50% of his meals. His heart rate also dropped into the 50s. Objective - Vital Signs/Intake and Output Vital Signs (last 24 hours): Temp Pulse Resp BP Pulse Ox 97.8 F 58 L 19 160/71 H 96 08/27/18 06:00 08/27/18 06:00 08/27/18 06:00 08/27/18 06:00 08/27/18 06:00 Intake and Output: 08/27/18 08/27/18 06:59 18:59 Intake Total 1480 Output Total 2826 Balance -1346 - Medications Medications: Current Medications Amlodipine Besylate (Norvasc) 5 mg PO DAILY [facility] Last Admin: 08/26/18 09:36 Dose: 5 mg Carvedilol (Coreg) 12.5 mg PO DAILY [facility] Last Admin: 08/26/18 09:35 Dose: Not Given Donepezil HCl (Aricept) 5 mg PO DAILY [facility] Last Admin: 08/26/18 09:35 Dose: 5 mg Furosemide (Lasix) 40 mg PO BID [facility] Last Admin: 08/26/18 17:18 Dose: 40 mg Gabapentin (Neurontin) 300 mg PO DAILY [facility]; Protocol Last Admin: 08/26/18 09:36 Dose: 300 mg Sodium Chloride (Sodium Chloride 0.45%) 1,000 mls @ 80 mls/hr IV .[id number] [facility] Last Admin: 08/26/18 23:10 Dose: 80 mls/hr Insulin Detemir (Levemir) 10 unit SC HS [facility] Insulin Human Regular (Humulin R Low) 0 units SC ACHS [facility]; Protocol Lactulose (Enulose) 10 gm PO TID [facility] Last Admin: 08/26/18 17:18 Dose: 10 gm Levothyroxine Sodium (Synthroid) 25 mcg PO 0600 [facility] Last Admin: 08/27/18 05:58 Dose: 25 mcg Losartan Potassium (Cozaar) 50 mg PO DAILY [facility] Last Admin: 08/26/18 09:35 Dose: 50 mg - Labs Labs: 08/26/18 06:10 08/26/18 06:10 PT 13.0 SECONDS (9.4-12.5) H 08/25/18 17:41 INR 1.17 08/25/18 17:41 APTT 28.3 Seconds (26.9-38.3) 08/25/18 17:41 - Constitutional Appears: No Acute Distress - Head Exam Head Exam: ATRAUMATIC, NORMOCEPHALIC - Respiratory Exam Respiratory Exam: Clear to Ausculation Bilateral, NORMAL BREATHING PATTERN - Cardiovascular Exam Cardiovascular Exam: REGULAR RHYTHM, +S1, +S2 - GI/Abdominal Exam GI & Abdominal Exam: Soft, Normal Bowel Sounds. absent: Tenderness - Neurological Exam Neurological Exam: Alert, Awake, Oriented x3 Assessment and Plan - Assessment and Plan (Free Text) Assessment: Hypoglycemia Bradycardia HTN Cirrhosis of the liver Diabetes mellitus s/p ablation of liver tumor CAD Plan: Patient with bradycardia. Will order holter monitor and discontinue dose of Coreg. Patient also has hypoglycemia possibly due to poor appetite. According to the nurse, he is only eating 50% of his meals. Will decrease Levemir to 10 units at night. continue accuchecks with sliding scale.
[2018-08-27 08:03] LABS: BLOOD UREA NITROGEN 29 mg/dL (7-21); CALCIUM 7.8 mg/dL (8.4-10.5); GFR NON-AFRICAN AMERICAN 54
--- NOTE | 2018-08-27 09:44 | CP.PCM.PCO ---
Physician Communication Note - Physician Communication Note Physician Communication Note: pt seen and examined, holter in place for Sb, Insulin being adjusted Additional Comments - Additional Comments Additional Comments: pt with bp med adjustment for hypertension, will follow holter results. entered tcu mayelin p.t. recs , will follow
[2018-08-27] MEDS: Insulin Detemir 100 units/ml Vial (Levemir) SC SCH (21:43)
[2018-08-28] MEDS: Levothyroxine 25 MCG TAB PO SCH (05:03)
[2018-08-28] MEDS: Insulin Reg-LOW-Coverage SC SCH ×4 (08:30→21:37)
--- NOTE | 2018-08-28 10:05 | PN ---
DATE: 08/28/2018 SUBJECTIVE: This is a 77-year-old white male. The patient was admitted to the hospital with hyperglycemia and weakness. The patient has past history of cirrhosis of the liver. He had a TIPS procedure done many years ago. The patient has had past history of esophageal varices, GI bleeding. 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 The patient has history of hypothyroidism, hypertension. The patient was admitted with elevated blood sugar, but his blood sugar is controlled now. THE PATIENT HAS ALLERGY TO IODINE DYE AND ALSO PENICILLIN. PHYSICAL EXAMINATION: VITAL SIGNS: This morning, the patient's pulse is 75, blood pressure 150/70, respirations are 19, O2 sat is 97% on room air. HEENT: The patient's head is normocephalic. NECK: The thyroid is not enlarged. JVP is flat. LUNGS: Trachea central. Breath sounds are vesicular. No adventitious sounds.. HEART: Normal sinus rhythm. S1 and S2 present. No murmurs. ABDOMEN: Soft. Liver and spleen not palpable. CENTRAL NERVOUS SYSTEM: Clinically, the patient is conscious, oriented x3. The patient has no focal neurological deficits, but he shows evidence of general weakness. LABORATORY DATA: The patient's blood sugar was 169 this morning. Recent blood work done shows a hemoglobin of 11.3, white count is normal. The patient's chemistry, the blood sugar is 169 as mentioned. His BUN and creatinine are within normal range. The patient has been monitored in the telemetry unit for 48 hours without any events. The patient's blood sugar is stabilized to reasonable level. MEDICATIONS: The patient's medications consist of Aricept 5 mg daily. The patient is on Losartan 50 mg daily, lactulose 20 g four times a day, insulin coverage for diabetes. The patient is on Lasix 40 mg b.i.d., gabapentin 300 mg daily, amlodipine 5 mg daily, Synthroid 25 mcg daily. ASSESSMENT AND PLAN: We will check on the patient's bowel movement; he has not had any bowel movement for three days. In view of the fact that the patient has had past history of hepatic encephalopathy, we will treat the patient with Fleet's enema today and we will make sure the patient has a bowel movement prior to being discharged from the hospital. The patient is on a heart-healthy diet. The patient's blood work was mentioned earlier. Eb Carolina MD [facility]
[2018-08-28] MEDS: Insulin Detemir 100 units/ml Vial (Levemir) SC SCH (21:34)
[2018-08-29] MEDS: Levothyroxine 25 MCG TAB PO SCH (06:33)
[2018-08-29] MEDS: Insulin Reg-LOW-Coverage SC SCH ×4 (08:20→21:20)
--- NOTE | 2018-08-29 10:51 | PN ---
DATE: 08/29/2018 SUBJECTIVE: The patient is seen in [facility] in [place], transferred to the telemetry unit room 265, bed 1. The patient was admitted with hyperglycemia and dehydration. The patient has had a procedure to treat lesion in the liver which was cancerous tumor at the [facility]. Subsequently the patient had severe hyperglycemia and then seen in the hospital emergency room and admitted to the hospital for treatment of hyperglycemia, uncontrolled diabetes. The patient also had severe dehydration associated with the uncontrolled diabetes. The patient is seen this morning. He is awake, but very lethargic. PHYSICAL EXAMINATION: VITAL SIGNS: His pulse is 63, blood pressure 154/71, respirations are 18, O2 sat is 95% on room air and his temperature is normal. HEENT: Head is normocephalic. NECK: Thyroid is not enlarged. JVP is flat. LUNGS: Trachea is central. Breath sounds are vesicular. No adventitious sounds. HEART: Normal sinus rhythm. S1 and S2, present. ABDOMEN: Soft. Liver and spleen not palpable. No tenderness. No masses. CENTRAL NERVOUS SYSTEM: The patent has no focal deficits. LABORATORY DATA: The patient's blood work, hemoglobin is 11.3. The patient's chemistry; the blood sugar was 319 this morning. Uncontrolled diabetes and the patient is getting insulin coverage to control the diabetes. MEDICATIONS: The patient's medications consists of Aricept 5 mg daily, Losartan 50 mg daily and lactulose 20 mg every 4 times a day. The patient gets insulin coverage for diabetes. Lasix 40 mg twice a day, insulin, Levemir 10 units daily. The patient gets gabapentin 300 mg one tablet daily, the patient gets amlodipine 5 mg daily and Synthroid 25 mcg daily. The patient's list of medications. The patient's condition is improving, but the patient is still very lethargic and has uncontrolled sugar levels. His constipation problem was relieved yesterday with lactulose. The patient still continues lactulose because he has history of hepatic encephalopathy. We will request the admission to the transitional care unit for deconditioning and rehabilitation. Eb Carolina MD [facility]
[2018-08-29] MEDS: Insulin Detemir 100 units/ml Vial (Levemir) SC SCH (21:19)
[2018-08-30] MEDS: Levothyroxine 25 MCG TAB PO SCH (05:33)
[2018-08-30] MEDS: Insulin Reg-LOW-Coverage SC SCH ×4 (09:42→22:07)
--- NOTE | 2018-08-30 12:29 | PN ---
DATE: 08/30/2018 SUBJECTIVE: The patient is seen in [facility] telemetry unit room 265, bed 1. The patient was admitted with weakness, uncontrolled diabetes secondary to procedure performed on his liver for liver tumor. The patient has past history of diabetes, coronary artery disease, hypertension. The patient also has history of mild dementia, encephalopathy, history of multiple liver tumors, which are cancerous. The patient also has history of cataract surgery, glaucoma, also history of congestive heart failure. Seen this morning. He is awake, very lethargic. PHYSICAL EXAMINATION: VITAL SIGNS: The patient's pulse is 61, blood pressure 150/68, respirations are 20 per minute, O2 sat is 96% on room air. HEENT: Head is normocephalic. No evidence of any lesions. NECK: Thyroid is not enlarged. JVP is flat. Carotid pulse is present. LUNGS: Trachea is central. Breath sounds are vesicular. No adventitious sounds are heard. HEART: Normal sinus rhythm. Sinus bradycardia. S1, S2, present. No murmurs. ABDOMEN: Soft. Liver and spleen not palpable. No ascites. CENTRAL NERVOUS SYSTEM: The patient has lethargy and seems to be very depressed, but no focal neurological deficits. Cranial nerves are intact. The patient's motor and sensory function are present but the patient has difficulty in ambulating at this time because he has been sick for a few days. He has no localizing signs though. LABORATORY DATA: The patient's blood work, hemoglobin is 11.3. We will have to repeat his chemistries which is not done at this time. The patient's past history is significant that he has a shunt in his liver, it is a portosystemic shunt that was placed via the jugular vein; this was a TIPS procedure. ASSESSMENT AND PLAN: The patient's current condition is progressing very slowly. We request transitional care, rehabilitation for deconditioning for the patient at this time. We will follow up. We will continue all his medications. List of medications consists of Aricept 5 mg daily, losartan 50 mg daily, lactulose 20 mg four times a day. The patient is on insulin coverage for diabetes, gabapentin 300 mg daily, amlodipine 5 mg daily. The patient is getting Synthroid 25 mcg daily. Diet is heart healthy diet, diabetic. Eb Carolina MD VICTOR[facility]
[2018-08-30] MEDS: Insulin Detemir 100 units/ml Vial (Levemir) SC SCH (22:02)
[2018-08-30] MEDS: COMBIGAN OU SCH (22:02)
[2018-08-31] MEDS: Levothyroxine 25 MCG TAB PO SCH (05:42)
[2018-08-31 06:22] VITALS: O2SAT 97
[2018-08-31 06:55] LABS: BASO # 0.01 K/mm3 (0.0-2.0); BASO % 0.2 % (0.0-3.0); EOS # 0.2 (0.0-0.7); EOS % 5.2 % (1.5-5.0); HEMOGLOBIN 10.6 g/dL (14.0-18.0); LYMPH # 0.8 (1.2-3.4); MEAN CELL VOLUME 90.8 fl (80.0-105.0); MEAN CORPUSCULAR HEMOGLOBIN 31.5 pg (25.0-35.0); MEAN CORPUSCULAR HGB CONC 34.8 g/dl (31.0-37.0); MEAN PLATELET VOLUME 11.8 fl (7.0-11.0); MONO # 0.3 (0.1-0.6); MONO % 5.7 % (1.0-6.0); RBC 3.36 10^6/uL (3.5-6.1); RED CELL DISTRIBUTION WIDTH 12.4 % (11.5-14.5); WHITE BLOOD COUNT 4.4 10^3/uL (4.5-11.0)
[2018-08-31 07:12] LABS: ALB/GLOB RATIO 0.8 (1.1-1.8); ALBUMIN 2.3 g/dL (3.0-4.8); ALT/SGPT 57 U/L (7-56); AST/SGOT 31 U/L (17-59); BLOOD UREA NITROGEN 30 mg/dL (7-21); CALCIUM 7.8 mg/dL (8.4-10.5); GFR NON-AFRICAN AMERICAN 54
[2018-08-31] MEDS ORDERED: Potassium Chloride 20 mEq ER Tab PO ONE (07:59)
--- NOTE | 2018-08-31 08:05 | CP.PCM.PN ---
Subjective - Date & Time of Evaluation Date of Evaluation: 08/31/18 Time of Evaluation: 07:45 - Subjective Subjective: Patient is seen this morning. He is feeling weak and tired. He is waiting to go to the transitional care unit. Objective - Vital Signs/Intake and Output Vital Signs (last 24 hours): Temp Pulse Resp BP Pulse Ox 97.8 F 58 L 18 139/65 97 08/31/18 06:00 08/31/18 06:00 08/31/18 06:00 08/31/18 06:00 08/31/18 06:00 Intake and Output: 08/31/18 08/31/18 06:59 18:59 Intake Total 1200 Output Total 402 Balance 798 - Medications Medications: Current Medications Amlodipine Besylate (Norvasc) 5 mg PO DAILY [facility] Last Admin: 08/30/18 09:42 Dose: 5 mg Donepezil HCl (Aricept) 5 mg PO DAILY [facility] Last Admin: 08/30/18 09:41 Dose: 5 mg Furosemide (Lasix) 40 mg PO BID [facility] Last Admin: 08/30/18 17:29 Dose: 40 mg Gabapentin (Neurontin) 300 mg PO DAILY [facility]; Protocol Last Admin: 08/30/18 09:42 Dose: 300 mg Home Med (Home Med) 1 unit OU Q12 [facility] Last Admin: 08/30/18 22:02 Dose: 1 unit Insulin Detemir (Levemir) 10 unit SC HS [facility] Last Admin: 08/30/18 22:02 Dose: 10 unit Insulin Human Regular (Humulin R Low) 0 units SC ACHS [facility]; Protocol Last Admin: 08/30/18 22:07 Dose: Not Given Lactulose (Enulose) 20 gm PO BID [facility] Levothyroxine Sodium (Synthroid) 25 mcg PO 0600 [facility] Last Admin: 08/31/18 05:42 Dose: 25 mcg Losartan Potassium (Cozaar) 50 mg PO DAILY [facility] Last Admin: 08/30/18 09:42 Dose: 50 mg Potassium Chloride (K-Dur 20 Meq Er Tab) 40 meq PO ONCE ONE Stop: 08/31/18 08:00 - Labs Labs: 08/31/18 06:15 08/31/18 06:15 PT 13.0 SECONDS (9.4-12.5) H 08/25/18 17:41 INR 1.17 08/25/18 17:41 APTT 28.3 Seconds (26.9-38.3) 08/25/18 17:41 - Constitutional Appears: No Acute Distress - Head Exam Head Exam: ATRAUMATIC, NORMOCEPHALIC - Respiratory Exam Respiratory Exam: Decreased Breath Sounds, NORMAL BREATHING PATTERN - Cardiovascular Exam Cardiovascular Exam: REGULAR RHYTHM, +S1, +S2 - GI/Abdominal Exam GI & Abdominal Exam: Soft, Normal Bowel Sounds. absent: Tenderness - Extremities Exam Extremities Exam: Normal Inspection - Neurological Exam Neurological Exam: Alert, Awake, CN II-XII Intact, Oriented x3 Assessment and Plan - Assessment and Plan (Free Text) Assessment: Deconditioning Hyperosmolar hyperglycemic nonketotic state HTN s/p ablation of liver cancer Cirrhosis of liver s/p TIPS Diabetes mellitus Plan: Patient's potassium is low. Will order potassium supplemented. continue accuchecks with sliding scale coverage and levemir. Liver enzymes are trending downward. continue physical therapy. Patient is awaiting bed in the transitional care unit.
[2018-08-31] MEDS: Insulin Reg-LOW-Coverage SC SCH ×2 (08:47→11:28)
[2018-08-31] MEDS: COMBIGAN OU SCH (09:15)
--- NOTE | 2018-08-31 11:23 | CP.PCM.PCO ---
Physician Communication Note - Physician Communication Note Physician Communication Note: spoke to [facility] re: eval pending, will follow
[2018-08-31 12:02] VITALS: BP 121/62; RESP 20; TEMP 97.6
[2018-08-31 14:18] VITALS: PULSE 57
== END 2018-08-31 16:26 | DRG 639 ==
LOC: ED 17:03 → ERH 18:29 → 2RNO 22:07 → OBSVTOIN 08-26 08:02
PROVIDERS: ADMIT Internal Medicine; ATTEND Internal Medicine
DX: E11.65 Type 2 diabetes mellitus with hyperglycemia (principal); E86.0 Dehydration; K74.60 Unspecified cirrhosis of liver; K59.00 Constipation, unspecified; E11.649 Type 2 diabetes mellitus with hypoglycemia without coma; I25.10 Atherosclerotic heart disease of native coronary artery without angina pectoris; I11.0 Hypertensive heart disease with heart failure; I50.9 Heart failure, unspecified; E03.9 Hypothyroidism, unspecified; F03.90 Unspecified dementia, unspecified severity, without behavioral disturbance, psychotic disturbance, mood disturbance, and anxiety; Z85.05 Personal history of malignant neoplasm of liver; Z79.4 Long term (current) use of insulin; Z95.5 Presence of coronary angioplasty implant and graft; Z79.899 Other long term (current) drug therapy; Z88.0 Allergy status to penicillin; Z91.041 Radiographic dye allergy status